=== PATIENT | male | born 1985 ===

== ENCOUNTER 2017-10-03 23:49 | Inpatient (IN) | payer OTHER ==
[2017-10-03 23:49] VITALS: BMI 29.7
--- NOTE | 2017-10-04 00:38 | ED PDOC ---
HPI: SOB/CHF/COPD Chief Complaint (Provider): "Serenity been short of breath for 3 days and its getting worse" History Per: Patient <Jt Griggs - Last Filed: 10/04/17 04:22> <Bridgette Nobles - Last Filed: 10/04/17 20:28> Time Seen by Provider: 10/04/17 00:23 Chief Complaint (Nursing): Shortness Of Breath Additional Complaint(s): 32 y/o male with suspected history of asthma presents for evaluation of SOB. SOB started 3 days ago, which the patients attributes to a combination of cold like symptoms and season allergies. He reports he has been having increased difficulty taking deep breathes, and now his chest feels tight, causing him to come to the ED. He reports a subjective fever the last few days. Last asthma attack was >10 years ago as per pt. He did not take any treatments at home as he does not have any medications or rescue inhalers. He denies chest pain, sputum production, hemoptysis, left arm/jaw pain, N/V/D, diaphoresis, calf pain. Denies drug use. No other complaints. (Jt Griggs) Supervising Attending Note - Supervising Attending Note The Documented history was done by the: Physician Custom Bike Builder, Attending Physician The documented physical exam was done by the: Physician Custom Bike Builder, Attending Physician The documented procedures were done by the: Physician Custom Bike Builder, Attending Physician - Attestation: I have personally seen and examined this patient.: Yes I have fully participated in the care of the patient.: Yes I have reviewed all pertinent clinical information, including history, physical exam and plan: Yes <Bridgette Nobles - Last Filed: 10/04/17 20:28> Past Medical History - Medical History PMH: Asthma Denies: Depression - Family History Family History: States: No Known Family Hx <Jt Griggs - Last Filed: 10/04/17 04:22> Reviewed: Historical Data, Nursing Documentation, Vital Signs - Surgical History Surgical History: No Surg Hx <Bridgette Nobles - Last Filed: 10/04/17 20:28> Vital Signs: Last Vital Signs Temp 98 F 10/04/17 17:00 Pulse 123 H 06/10/18 17:01 Resp 18 10/04/17 17:01 BP 141/85 10/04/17 17:00 Pulse Ox 94 L 10/04/17 17:00 - Home Medications Home Medications: Ambulatory Orders Medication Instructions Recorded No Known Home Med 03/29/15 - Allergies Allergies/Adverse Reactions: Allergies Allergy/AdvReac Type Severity Reaction Status Date / Time No Known Allergies Allergy Verified 10/03/17 23:53 Wells Criteria for PE - Wells Criteria for Pulmonary Embolism Clinical Signs and Symptoms of DVT: No P.E is #1 Diagnosis, or Equally Likely: No Heart Rate >100: Yes Immobilization at least 3 days;Surgery previous 4 weeks: No Previous, objectively diagnosed PE or DVT: No Hemoptysis: No Malignancy w/treatment within 6 months, or palliative: No Total Score: 1.5 <Jt Griggs - Last Filed: 10/04/17 04:22> Review of Systems Constitutional: Positive for: Fever (subjective), Chills. Negative for: Sweats , Weakness, Malaise Eyes: Negative for: Pain, Vision Change ENT: Positive for: Nose Discharge (clear), Nose Congestion. Negative for: Nose Pain, Mouth Pain, Mouth Swelling, Throat Pain Cardiovascular: Negative for: Chest Pain, Palpitations, Paroxysmal Noc. Dyspnea , Edema Respiratory: Positive for: Shortness of Breath, SOB with Exertion, Wheezing. Negative for: Cough, Hemoptysis, Pleuritic Pain, Sputum Gastrointestinal: Negative for: Nausea, Vomiting, Abdominal Pain, Diarrhea Genitourinary Male: Negative for: Dysuria, Frequency, Incontinence Skin: Negative for: Rash Neurological: Negative for: Weakness, Numbness Psych: Negative for: Anxiety, Depression <Jt Griggs - Last Filed: 10/04/17 04:22> ROS Statement: Except As Marked, All Systems Reviewed And Found Negative <Bridgette Nobles - Last Filed: 10/04/17 20:28> Physical Exam - Reviewed Nursing Documentation Reviewed: Yes Vital Signs Reviewed: Yes - Physical Exam Appears: Positive for: Non-toxic, No Acute Distress, Uncomfortable (taking in full sentances but labored) Head Exam: Positive for: ATRAUMATIC, NORMAL INSPECTION, NORMOCEPHALIC Skin: Positive for: Normal Color, Warm, Dry. Negative for: Diaphoresis, Pallor , Rash Eye Exam: Positive for: EOMI, PERRL. Negative for: Conjunctival injection, Scleral icterus ENT: Positive for: Normal ENT Inspection Neck: Positive for: Normal, Painless ROM, Supple Cardiovascular/Chest: Positive for: Regular Rate, Rhythm, Chest Non Tender, Tachycardia. Negative for: JVD, Murmur Respiratory: Positive for: Decreased Breath Sounds, Accessory Muscle Use, Wheezing. Negative for: Normal Breath Sounds, Crackles, Rales, Rhonchi, Respiratory Distress Pulses-Radial (L): 2+ Pulses-Radial (R): 2+ Gastrointestinal/Abdominal: Positive for: Normal Exam, Bowel Sounds, Soft. Negative for: Tenderness Lymphatic: Negative for: Adenopathy Neurologic/Psych: Positive for: Alert, cyber policy and strategy planner II-XII, Oriented. Negative for: Motor/Sensory Deficits <Jt Griggs - Last Filed: 10/04/17 04:22> - Reviewed Nursing Documentation Reviewed: Yes <Bridgette Nobles - Last Filed: 10/04/17 20:28> - Laboratory Results Result Diagrams: 10/04/17 00:46 10/04/17 00:46 - ECG O2 Sat by Pulse Oximetry: 92 - Progress Re-evaluation Time: 04:24 Condition: Improving,but remains with symptoms <Jt Griggs - Last Filed: 10/04/17 04:22> - Laboratory Results Result Diagrams: 10/04/17 00:46 10/04/17 18:50 <Bridgette Nobles - Last Filed: 10/04/17 20:28> - Progress ED Course And Treament: asthma exacerbation cbc cmp uds cxr duo-nebs x 3 solu-medrol 125mg O2 via nc albuterol 2.5mg x1 mag 2gm ivp pt re-evalauted, pre tx flow 100, post tx 130, pt still SOB, wheezing, but with better air entry. POX remains in the low 90s on 2L NC. Discussed case with admitting hospitalist, Dr. Christian, whom agreed with admission. (Jt Griggs) Disposition - Patient ED Disposition Is Patient to be Admitted: Yes - Disposition Disposition Time: 04:25 <Jt Griggs - Last Filed: 10/04/17 04:22> - Patient ED Disposition Is Patient to be Admitted: Yes Discussed With : Yared Christian Doctor Will See Patient In The: ED Counseled Patient/Family Regarding: Studies Performed, Diagnosis - Pt Status Changed To: Hospital Disposition Of: Inpatient - Admit Certification Admit to Inpatient:: After my assessment, the patient will require hospitalization for at least two midnights. This is because of the severity of symptoms shown, intensity of services needed, and/or the medical risk in this patient being treated as an outpatient. - POA Present On Arrival: None <Bridgette Nobles - Last Filed: 10/04/17 20:28> - Clinical Impression Clinical Impression: Acute asthma exacerbation - Disposition Condition: FAIR
[2017-10-04] MEDS: Albuterol-Ipratrop 3 mg / 0.5 (3 ml) UD INH SCH ×2 (00:46→00:48)
[2017-10-04 00:49] LABS: MEAN CELL VOLUME 90.5 fl (80.0-94.0); MEAN CORPUSCULAR HEMOGLOBIN 30.7 pg (27.0-31.0); RBC 5.52 Mil/uL (4.40-5.90); RED CELL DISTRIBUTION WIDTH 13.9 % (11.5-14.5); WHITE BLOOD COUNT 11.5 K/uL (4.8-10.8)
[2017-10-04 00:59] LABS: BLOOD UREA NITROGEN 14 mg/dl (9-20); CALCIUM 9.3 mg/dL (8.4-10.2); GFR AFRICAN-AMERICAN > 60; GFR NON-AFRICAN AMERICAN > 60
[2017-10-04] MEDS ORDERED: Magnesium Sulfate 2 gm/50 ml 2 GM/50 ML BAG IVPB ONE (02:10)
[2017-10-04] MEDS ORDERED: Albuterol 0.083% Inhal Sol (2.5 mg/3 mL) UD INH STA (02:10)
[2017-10-04] MEDS ORDERED: Magnesium Sulfate 2 gm/50 ml 2 GM/50 ML BAG ONE (02:21)
--- NOTE | 2017-10-04 04:45 | CP.PCM.HP ---
History of Present Illness - History of Present Illness History of Present Illness: PMD: None Chief Complaint: SOB The patient was seen and examined in the ED, his family was present HPI: This is a 32 years old male with hx of Asthma, Comes with 3 days of worsening SOB, wheezing, and coughing with green sputum associated with chest tightness. This started as a common cold with subjective fever, throat ached.His last asthmatic crisis was more than 10 years ago. In the ED he received 4 sets of Albuterol and Methyl prednisolone with Magnesium Sulfate. PMH: Asthma PSH: Removal of fluid from both knees SH: Never Smoked, no illegal drug use; Occasional alcohol; FH: Sister with Bronchial asthma Allergies: NKDA Seasonal Allergies Medication: None Present on Admission - Present on Admission Any Indicators Present on Admission: No History of DVT/PE: No History of Uncontrolled Diabetes: No Urinary Catheter: No Decubitus Ulcer Present: No Review of Systems - Constitutional Constitutional: Headache. absent: Anorexia, Chills, Fever, Lethargy, Sleep Apnea - EENT Eyes: absent: Diplopia, Photophobia, Requires Corrective Lenses Ears: absent: Decreased Hearing, Ear Discharge, Tinnitus Nose/Mouth/Throat: absent: Epistaxis, Nasal Congestion, Nasal Discharge, Sinus Pain, Sinus Pressure - Cardiovascular Cardiovascular: Dyspnea. absent: Chest Pain, Edema, Lightheadedness, Palpitations - Respiratory Respiratory: Cough, Wheezing, Chest Congestion. absent: Dyspnea, Stridor - Gastrointestinal Gastrointestinal: absent: Coffee Ground Emesis, Constipation, Diarrhea, Nausea, Vomiting - Genitourinary Genitourinary: absent: Dysuria, Pyuria, Nocturia - Musculoskeletal Musculoskeletal: absent: Arthralgias, Muscle Weakness - Integumentary Integumentary: absent: Pruritus, Rash, Skin Ulcer, Sores, Striae, Swelling - Neurological Neurological: Headaches. absent: Confusion, Focal Weakness, Weakness - Psychiatric Psychiatric: absent: Anxiety, Depression, Hopelessness, Panic Attacks - Endocrine Endocrine: absent: Palpitations, Polydipsia, Polyphagia, Polyuria - Hematologic/Lymphatic Hematologic: absent: Easy Bleeding, Easy Bruising Past Patient History - Past Medical History & Family History Past Medical History?: Yes - Past Social History Smoking Status: Former Smoker Chewing Tobacco Use: No Cigar Use: No Alcohol: Occasional Drugs: Denies, Inhalants Home Situation {Lives}: With Family - CARDIAC Hx Cardiac Disorders: No - PULMONARY Hx Asthma: Yes - NEUROLOGICAL Hx Neurological Disorder: No - HEENT Hx HEENT Problems: No - RENAL Hx Chronic Kidney Disease: No - ENDOCRINE/METABOLIC Hx Endocrine Disorders: No - HEMATOLOGICAL/ONCOLOGICAL Hx Blood Disorders: No - INTEGUMENTARY Hx Dermatological Problems: No - MUSCULOSKELETAL/RHEUMATOLOGICAL Hx Musculoskeletal Disorders: No - GASTROINTESTINAL Hx Gastrointestinal Disorders: No - PSYCHIATRIC Hx Depression: No - SURGICAL HISTORY Hx Surgeries: Yes (b/l knee surgery) Other/Comment: bilateral knee surgery - ANESTHESIA Hx Anesthesia: Yes Hx Anesthesia Reactions: No Meds Allergies/Adverse Reactions: Allergies Allergy/AdvReac Type Severity Reaction Status Date / Time No Known Allergies Allergy Verified 10/03/17 23:53 Physical Exam - Constitutional Appears: In Acute Distress - Head Exam Head Exam: ATRAUMATIC, NORMAL INSPECTION, NORMOCEPHALIC - Eye Exam Eye Exam: EOMI, Normal appearance Pupil Exam: NORMAL ACCOMODATION, PERRL - ENT Exam ENT Exam: Mucous Membranes Moist, Normal Exam - Neck Exam Neck exam: Positive for: Full Rom, Normal Inspection. Negative for: Lymphadenopathy, Tenderness - Respiratory Exam Respiratory Exam: Wheezes - Cardiovascular Exam Cardiovascular Exam: REGULAR RHYTHM, RRR, +S1, +S2 - GI/Abdominal Exam GI & Abdominal Exam: Normal Bowel Sounds, Soft. absent: Mass, Organomegaly, Tenderness - Rectal Exam Rectal Exam: Deferred - Extremities Exam Extremities exam: Positive for: normal inspection. Negative for: calf tenderness, pedal edema - Back Exam Back exam: NORMAL INSPECTION. absent: CVA tenderness (L), CVA tenderness (R) - Neurological Exam Neurological exam: Alert, CN II-XII Intact, Oriented x3, Reflexes Normal - Psychiatric Exam Psychiatric exam: Normal Affect, Normal Mood - Skin Skin Exam: Dry, Intact, Normal Color, Warm Results - Vital Signs Recent Vital Signs: Last Vital Signs Temp 98.8 F 10/04/17 04:00 Pulse 118 H 10/04/17 04:00 Resp 25 H 10/04/17 04:00 BP 149/91 H 10/04/17 04:00 Pulse Ox 92 L 10/04/17 04:25 - Labs Result Diagrams: 10/04/17 00:46 10/04/17 00:46 Labs: Laboratory Results - last 24 hr 10/04/17 10/04/17 00:46 00:46 WBC 11.5 H RBC 5.52 Hgb 17.0 Hct 50.0 MCV 90.5 MCH 30.7 MCHC 34.0 RDW 13.9 Plt Count 334 Sodium 143 Potassium 3.9 Chloride 104 Carbon Dioxide 24 Anion Gap 19 BUN 14 Creatinine 0.9 Est GFR ( Amer) > 60 Est GFR (Non-Af Amer) > 60 Random Glucose 118 H Calcium 9.3 - Imaging and Cardiology Chest x-ray Status: Image reviewed by me Additional comment: increased bronchovascular markings Assessment & Plan - Assessment and Plan (Free Text) Assessment: #. Asthmatic Crisis Plan: 32 years old male with hx of Asthma, Comes with 3 days of worsening SOB , wheezing, and coughing with green sputum associated with chest tightness. This started as a common cold with subjective fever, throat ached. His last asthmatic crisis was more than 10 years ago. In the ED he received 4 sets of Albuterol and Methyl prednisolone with Magnesium Sulfate. #.Asthmatic Crisis - Albuterol nebulizer Q4h and Q2h PRN - Methylprednisone 40mg Q6h - Mucinex Q12H - Oxygen 3L/min - IV Fluids #. DVT prophylaxis with Lovenox #. Code Status: Full - Date & Time Date: 10/04/17 Time: 04:45
[2017-10-04 04:59] LABS: ABG ALLEN TEST YES; ARTERIAL BLOOD GAS HCO3 23.1 mmol/L (21-28); ARTERIAL BLOOD GAS HEMOGLOBIN 17.8 g/dL (11.7-17.4); ARTERIAL BLOOD GAS O2 CAPACITY 23.7 mL/dL (16-24); ARTERIAL BLOOD GAS PCO2 37 mm/Hg (35-45); ARTERIAL BLOOD GAS PH 7.39 (7.35-7.45); ARTERIAL BLOOD GAS PO2 66 mm/Hg (80-100); ARTERIAL BLOOD GAS TCO2 23.5 mmol/L (22-28)
[2017-10-04] MEDS ORDERED: Albuterol 0.083% Inhal Sol (2.5 mg/3 mL) UD INH ONE (04:59)
[2017-10-04] MEDS ORDERED: Albuterol 0.083% Inhal Sol (2.5 mg/3 mL) UD ONE ×2 (05:05→05:11)
[2017-10-04 05:09] LABS: BARBITURATES, UR NEGATIVE (NEGATIVE); BENZODIAZEPINES, UR NEGATIVE (NEGATIVE); OPIATES, UR NEGATIVE (NEGATIVE); PHENCYCLIDINE, UR NEGATIVE (NEGATIVE)
[2017-10-04] MEDS: Dextrose 5%/0.45% NS 1,000 ML IV SCH ×2 (08:07→17:29)
[2017-10-04] MEDS: Albuterol 0.083% Inhal Sol (2.5 mg/3 mL) UD INH SCH ×3 (08:23→16:43)
[2017-10-04] MEDS: guaiFENesin 600 mg ER Tab PO SCH ×2 (08:24→22:05)
[2017-10-04] MEDS: Enoxaparin 40 mg Syringe SC SCH (08:25)
[2017-10-04] MEDS: Albuterol 0.083% Inhal Sol (2.5 mg/3 mL) UD INH PRN (08:29)
--- NOTE | 2017-10-04 09:08 | RAD ---
PROCEDURE: CHEST RADIOGRAPH, 1 VIEW HISTORY: SOB COMPARISON: None available. FINDINGS: LUNGS: Clear. PLEURA: No pneumothorax or pleural fluid seen. CARDIOVASCULAR: Normal. OSSEOUS STRUCTURES: No significant abnormalities. VISUALIZED UPPER ABDOMEN: Normal. OTHER FINDINGS: None. IMPRESSION: No active disease.
[2017-10-04] MEDS: MethylPREDNISolone 40 mg Vial IVP SCH ×3 (09:46→21:23)
[2017-10-04] MEDS ORDERED: methylPREDNISolone 40 MG in Sodium Chloride 0.9% 50 ML IVPB SCH (10:00)
[2017-10-04] MEDS ORDERED: Iohexol 300 100 ML IJ ONE (12:55)
[2017-10-04] MEDS ORDERED: Sodium Chloride 0.9% 50 ML IV ONE (12:55)
--- NOTE | 2017-10-04 13:53 | CT ---
PROCEDURE: CT Chest with contrast (Pulmonary Angiogram) HISTORY: r/o PE COMPARISON: None available. TECHNIQUE: Axial computed tomography images were obtained of the chest in the pulmonary arterial phase of enhancement. Coronal and sagittal reformatted images were created and reviewed. Intravenous contrast dose: 90 mL Omnipaque 300 Radiation dose: Total exam DLP = 378.7 mGy-cm. This CT exam was performed using one or more of the following dose reduction techniques: Automated exposure control, adjustment of the mA and/or kV according to patient size, and/or use of iterative reconstruction technique. FINDINGS: PULMONARY ARTERIES: Suboptimal opacification. No gross central pulmonary embolism. AORTA: No acute findings. No thoracic aortic aneurysm. LUNGS: Unremarkable. No nodule, mass or pulmonary consolidation. PLEURAL SPACES: Unremarkable. No effusion or pneuomothorax. HEART: Unremarkable. No cardiomegaly. No significant pericardial effusion. LYMPH NODES: No lymphadenopathy. BONES, CHEST WALL: Unremarkable. No fracture or destructive lesion OTHER FINDINGS: Unremarkable. IMPRESSION: Suboptimal opacification of the pulmonary arteries. No gross central pulmonary embolism. Clear lungs.
[2017-10-04] MEDS ORDERED: levoFLOXacin 500 mg in D5W 500 MG/100 ML BAG IVPB ONE ×2 (16:32→16:33)
[2017-10-04] MEDS: levoFLOXacin 500 mg in D5W 500 MG/100 ML BAG IVPB SCH (16:42)
[2017-10-04] MEDS ORDERED: Pneumococcal 23-Valent Vaccine IM ONE (17:05)
[2017-10-04 18:56] LABS: T4 7.57 ug/dl (5.5-11.0)
[2017-10-04 19:10] LABS: T3 1.48 nmol/L (1.49-2.60)
[2017-10-04] MEDS: Levalbuterol 1.25 MG/3 ML Inhal Soln UD INH SCH (22:14)
[2017-10-05] MEDS: Levalbuterol 1.25 MG/3 ML Inhal Soln UD INH SCH ×4 (01:07→19:27)
[2017-10-05] MEDS: MethylPREDNISolone 40 mg Vial IVP SCH ×4 (03:09→21:39)
[2017-10-05] MEDS: Dextrose 5%/0.45% NS 1,000 ML IV SCH (03:10)
[2017-10-05] MEDS: levoFLOXacin 500 mg in D5W 500 MG/100 ML BAG IVPB SCH (08:58)
[2017-10-05] MEDS: Enoxaparin 40 mg Syringe SC SCH (09:01)
[2017-10-05] MEDS: guaiFENesin 600 mg ER Tab PO SCH ×2 (09:01→21:41)
--- NOTE | 2017-10-05 12:13 | CP.PCM.PN ---
Subjective - Date & Time of Evaluation Date of Evaluation: 10/05/17 Time of Evaluation: 11:00 - Subjective Subjective: Pt is still short of breath -however sl better than yesterday still tachycardic but also sl better + cough + wheezing dyspnea on exertion No fever denies chest pain Hx of recent travel to his home country in [place] family today noted some black molds in pt's apartment Objective - Vital Signs/Intake and Output Vital Signs (last 24 hours): Temp Pulse Resp BP Pulse Ox 98.1 F 93 H 18 117/73 96 10/05/17 08:00 10/05/17 08:00 10/05/17 08:00 10/05/17 08:00 10/05/17 08:00 - Medications Medications: Current Medications Acetaminophen (Tylenol 325mg Tab) 650 mg PO Q4 PRN PRN Reason: Headache Last Admin: 10/04/17 21:22 Dose: 650 mg Albuterol Sulfate (Albuterol 0.083% Inhal Yadira (2.5 Mg/3 Ml) Ud) 2.5 mg INH RQ2 PRN PRN Reason: Shortness of Breath Last Admin: 10/04/17 08:29 Dose: 2.5 mg Enoxaparin Sodium (Lovenox) 40 mg SC DAILY ELOINA PRN Reason: Protocol Last Admin: 10/05/17 09:01 Dose: 40 mg Guaifenesin (Mucinex La) 600 mg PO Q12 ELOINA Last Admin: 10/05/17 09:01 Dose: 600 mg Levofloxacin/Dextrose (Levaquin 500mg) 500 mg in 100 mls @ 100 mls/hr IVPB DAILY ELOINA PRN Reason: Protocol Last Admin: 10/05/17 08:58 Dose: 100 mls/hr Levalbuterol HCl (Xopenex) 1.25 mg INH RQ6 ELOINA Last Admin: 10/05/17 08:20 Dose: 1.25 mg Methylprednisolone (Solu-Medrol) 40 mg IVP Q6 ELOINA Last Admin: 10/05/17 09:02 Dose: 40 mg - Labs Labs: 10/04/17 00:46 10/04/17 18:50 - Constitutional Appears: Non-toxic, Other (in mild respiratory distress after he walked after a few steps) - Head Exam Head Exam: ATRAUMATIC, NORMAL INSPECTION, NORMOCEPHALIC - Eye Exam Eye Exam: EOMI, Normal appearance, PERRL Pupil Exam: NORMAL ACCOMODATION - ENT Exam ENT Exam: Mucous Membranes Moist, Normal External Ear Exam - Neck Exam Neck Exam: Full ROM. absent: Meningismus - Respiratory Exam Respiratory Exam: Accessory Muscle Use, Decreased Breath Sounds, Rhonchi, Wheezes, Respiratory Distress - Cardiovascular Exam Cardiovascular Exam: Tachycardia, REGULAR RHYTHM, +S1, +S2 - GI/Abdominal Exam GI & Abdominal Exam: Soft, Normal Bowel Sounds. absent: Tenderness - Extremities Exam Extremities Exam: Full ROM, Normal Capillary Refill. absent: Calf Tenderness, Pedal Edema - Back Exam Back Exam: absent: CVA tenderness (L), CVA tenderness (R), vertebral tenderness - Neurological Exam Neurological Exam: Alert, Awake, CN II-XII Intact, Normal Gait, Oriented x3. absent: Motor Sensory Deficit Neuro motor strength exam: Left Upper Extremity: 5, Right Upper Extremity: 5, Left Lower Extremity: 5, Right Lower Extremity: 5 - Psychiatric Exam Psychiatric exam: Normal Affect, Normal Mood - Skin Skin Exam: Dry, Normal Color, Warm Assessment and Plan (1) Acute asthma exacerbation Status: Acute (2) Acute respiratory insufficiency Status: Acute (3) Sinus tachycardia Status: Acute (4) DVT prophylaxis Status: Acute - Assessment and Plan (Free Text) Assessment: 32 years old male with hx of Asthma, comes with 3 days of worsening SOB , wheezing, and coughing with green sputum associated with chest tightness. His last asthmatic crisis was more than 10 years ago. In the ED he received 4 sets of Albuterol and Methyl prednisolone with Magnesium Sulfate. Hx of recent travel 1 wk ago from [place]. (1) Acute asthma exacerbation Hx of Mild Intermittent Asthma Status: Acute Pt has cough, wheezing, dyspnea, and has slight sorethroat cont IV Solumedrol changed Albuterol to Xopenex bec of tachycardia empirically start IV antibiotics CXR : no infiltrates empirically started IV Levaquin (2) Acute respiratory insufficiency with Hypoxia Status: Acute CTA Pulm done due to hypoxia and tachycardia and hx of recent travel CTA Pulm: Suboptimal however no central or large PE, no infiltrates Doppler US of LE : neg Pulmonary consult - DR Jara Family states some molds were seen in pt's apartment (3) Sinus tachycardia ? sec to Bronchodilators Status: Acute ECHOcardiogram to eval cardiac status (4) DVT prophylaxis Status: Acute Lovenox
--- NOTE | 2017-10-05 12:29 | US ---
PROCEDURE: Bilateral lower extremity venous duplex Doppler. HISTORY: recent travel SOB, Tachycardia COMPARISON: None available. TECHNIQUE: Bilateral common femoral, superficial femoral, popliteal and posterior tibial veins were evaluated. Flow was assessed with color Doppler, compressibility, assessment of phasic flow and augmentation response. FINDINGS: COMMON FEMORAL VEIN: Right CFV: Unremarkable. Left CFV: Unremarkable. SUPERFICIAL FEMORAL VEIN: Right SFV: Unremarkable. Left SFV: Unremarkable. POPLITEAL VEIN: Right Popliteal: Unremarkable. Left Popliteal: Unremarkable. POSTERIOR TIBIAL VEIN: Right PTV: Unremarkable. Left PTV: Unremarkable. OTHER FINDINGS: None. IMPRESSION: No evidence of deep venous thrombosis.
[2017-10-05] MEDS: Albuterol 0.083% Inhal Sol (2.5 mg/3 mL) UD INH PRN (18:23)
[2017-10-06] MEDS: Levalbuterol 1.25 MG/3 ML Inhal Soln UD INH SCH ×4 (01:06→19:20)
[2017-10-06] MEDS: guaiFENesin 200 mg/10 ml Syrup UD PO PRN ×3 (03:13→17:02)
[2017-10-06] MEDS: MethylPREDNISolone 40 mg Vial IVP SCH ×3 (03:13→22:35)
[2017-10-06 05:35] LABS: BASO % 0.2 % (0.0-2.0); HEMOGLOBIN 15.6 g/dL (12.0-18.0); LYMPH # 1.4 K/uL (1.0-4.3); LYMPH % 6.3 % (20.0-40.0); MEAN PLATELET VOLUME 8.7 fl (7.2-11.7); MONO # 0.8 K/uL (0.0-0.8); MONO % 3.6 % (0.0-10.0); NEUT # 20.4 K/uL (1.8-7.0); NEUT % 89.9 % (50.0-75.0); PLATELET COUNT 338 K/uL (130-400); RBC 5.05 Mil/uL (4.40-5.90); RED CELL DISTRIBUTION WIDTH 13.9 % (11.5-14.5); WHITE BLOOD COUNT 22.7 K/uL (4.8-10.8)
[2017-10-06 05:51] LABS: BLOOD UREA NITROGEN 17 mg/dl (9-20); CALCIUM 9.4 mg/dL (8.4-10.2); GFR AFRICAN-AMERICAN > 60; GFR NON-AFRICAN AMERICAN > 60
[2017-10-06 07:16] LABS: ANISOCYTOSIS SLIGHT; BANDS 3 % (0-2); LYMPHOCYTE 8 % (20-50); MONOCYTE 1 % (0-10); NEUTROPHIL 87 % (42-75); PLATELET ESTIMATE NORMAL (NORMAL); REACTIVE LYMPHOCYTES 1 % (0-0); TOTAL CELLS COUNTED 100
[2017-10-06 07:17] LABS: LARGE PLATELETS PRESENT
[2017-10-06] MEDS: Enoxaparin 40 mg Syringe SC SCH (08:07)
[2017-10-06] MEDS: guaiFENesin 600 mg ER Tab PO SCH ×2 (08:08→22:35)
[2017-10-06] MEDS: levoFLOXacin 500 mg in D5W 500 MG/100 ML BAG IVPB SCH (08:08)
--- NOTE | 2017-10-06 08:46 | CP.PCM.PN ---
Subjective - Date & Time of Evaluation Date of Evaluation: 10/06/17 Time of Evaluation: 08:20 - Subjective Subjective: Patient seen and examined bedside.Feeling a little better but still with some SOB especially with activity. No acute issues overnight. Minimal cough no sputum production BP 109/72 HR 88 saturating 93-97 % on 2 LO2 via NC Objective - Vital Signs/Intake and Output Vital Signs (last 24 hours): Temp Pulse Resp BP Pulse Ox 97.9 F 88 18 109/72 97 10/06/17 08:00 10/06/17 08:00 10/06/17 08:00 10/06/17 08:00 10/06/17 08:00 - Medications Medications: Current Medications Acetaminophen (Tylenol 325mg Tab) 650 mg PO Q4 PRN PRN Reason: Headache Last Admin: 10/04/17 21:22 Dose: 650 mg Albuterol Sulfate (Albuterol 0.083% Inhal Yadira (2.5 Mg/3 Ml) Ud) 2.5 mg INH RQ2 PRN PRN Reason: Shortness of Breath Last Admin: 10/05/17 18:23 Dose: 2.5 mg Enoxaparin Sodium (Lovenox) 40 mg SC DAILY ELOINA PRN Reason: Protocol Last Admin: 10/06/17 08:07 Dose: 40 mg Guaifenesin (Mucinex La) 600 mg PO Q12 ELOINA Last Admin: 10/06/17 08:08 Dose: 600 mg Guaifenesin (Robitussin) 200 mg PO Q6 PRN PRN Reason: Cough Last Admin: 10/06/17 03:13 Dose: 200 mg Levofloxacin/Dextrose (Levaquin 500mg) 500 mg in 100 mls @ 100 mls/hr IVPB DAILY ELOINA PRN Reason: Protocol Last Admin: 10/06/17 08:08 Dose: 100 mls/hr Levalbuterol HCl (Xopenex) 1.25 mg INH RQ6 ELOINA Last Admin: 10/06/17 07:37 Dose: 1.25 mg Methylprednisolone (Solu-Medrol) 40 mg IVP Q6 ELOINA Last Admin: 10/06/17 03:13 Dose: 40 mg - Labs Labs: 10/06/17 04:20 10/06/17 04:20 - Constitutional Appears: Non-toxic, No Acute Distress - Head Exam Head Exam: ATRAUMATIC, NORMAL INSPECTION, NORMOCEPHALIC - Eye Exam Eye Exam: EOMI, PERRL Pupil Exam: NORMAL ACCOMODATION - ENT Exam ENT Exam: Mucous Membranes Moist, Normal Exam - Neck Exam Neck Exam: Full ROM, Normal Inspection - Respiratory Exam Respiratory Exam: Decreased Breath Sounds (bibasilar with some rales), Rhonchi, Wheezes (scattered ) - Cardiovascular Exam Cardiovascular Exam: REGULAR RHYTHM, +S1, +S2. absent: JVD - GI/Abdominal Exam GI & Abdominal Exam: Soft, Normal Bowel Sounds. absent: Guarding, Rebound - Rectal Exam Rectal Exam: Deferred - Extremities Exam Extremities Exam: Full ROM, Normal Capillary Refill, Normal Inspection. absent : Calf Tenderness, Pedal Edema - Back Exam Back Exam: NORMAL INSPECTION - Neurological Exam Neurological Exam: Alert, Awake, CN II-XII Intact, Oriented x3 - Psychiatric Exam Psychiatric exam: Normal Affect, Normal Mood - Skin Skin Exam: Dry, Intact, Normal Color, Warm Assessment and Plan - Assessment and Plan (Free Text) Assessment: 32 years old male with hx of Asthma, came with 3 days of worsening SOB , wheezing, and coughing with green sputum associated with chest tightness. Patient recently traveled back from [facility]. His last asthmatic crisis was more than 10 years ago. In the ED he received 4 sets of Albuterol and Methyl prednisolone with Magnesium Sulfate but noted to be very tight. CT chest showed no central PE , no infiltrate He was admitted and started on Solumedrol IV Q6 , Duonebs and Levaquine empirically Pulmonary consulted. At present feeling a little better but still with SOB especially with activity and O2Sat 93 % on 2 LO2 via NC 1. Acute asthma exacerbation Hx of Mild Intermittent Asthma Acute with cough, wheezing, dyspnea, chest tigghtness and soutum production O2 sat 93 5 on 2 Lo2 via Nc WBC trending up to 22 k today C T chest showed no PE no infiltrate cont IV Solumedrol but gary to 40 mg IV Q12 changed Albuterol to Xopenex because of tachycardia In Levaquine empirically 2. Acute respiratory insufficiency with Hypoxia secondary tO Asthma exacerbation Acute CTA Pulm done due to hypoxia and tachycardia and hx of recent travel CTA Pulm: Suboptimal however no central or large PE, no infiltrates Doppler US of LE : neg Pulmonary contulted and case discussed with Dr.Jara Cobntinue current management . Gary stroids 3 Sinus tachycardia sec to Bronchodilators Albuterol switched to Xopenex TSH - wnl F/u echo report 4. Leukocytosis Most likely steroid induced gary steroids down Repeat CBc in AM 5.DVT prophylaxis Lovenox
--- NOTE | 2017-10-06 08:52 | CP.PCM.CON ---
History of Present Illness - History of Present Illness History of Present Illness: 32 YR OLD MALE ARMITTED WITH ACUTE ASTHMA.HE WAS SICK WITH URI SYMPTOMS AND WHEEZING WITH SHORTNESS OF BREATH X 3 DAYS BEFORE COMING TO HOSPITAL. HX OF CHILDHOOD ASTHMA BUT HAS NOT BEEN ILL X YRS. 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 AND IS ALLERGIC TO CATS Past Patient History - Past Medical History & Family History Past Medical History?: Yes - Past Social History Smoking Status: Never Smoked - CARDIAC Hx Cardiac Disorders: No - PULMONARY Hx Respiratory Disorders: Yes Hx Asthma: Yes - NEUROLOGICAL Hx Neurological Disorder: No - HEENT Hx HEENT Problems: No - RENAL Hx Chronic Kidney Disease: No - ENDOCRINE/METABOLIC Hx Endocrine Disorders: No - HEMATOLOGICAL/ONCOLOGICAL Hx Blood Disorders: No - INTEGUMENTARY Hx Dermatological Problems: No - MUSCULOSKELETAL/RHEUMATOLOGICAL Hx Falls: No - GASTROINTESTINAL Hx Gastrointestinal Disorders: No - PSYCHIATRIC Hx Substance Use: No - SURGICAL HISTORY Hx Surgeries: Yes (b/l knee surgery) Other/Comment: bilateral knee surgery - ANESTHESIA Hx Anesthesia: Yes Hx Anesthesia Reactions: No Meds Allergies/Adverse Reactions: Allergies Allergy/AdvReac Type Severity Reaction Status Date / Time No Known Allergies Allergy Verified 10/03/17 23:53 - Medications Medications: Current Medications Acetaminophen (Tylenol 325mg Tab) 650 mg PO Q4 PRN PRN Reason: Headache Last Admin: 10/04/17 21:22 Dose: 650 mg Albuterol Sulfate (Albuterol 0.083% Inhal Yadira (2.5 Mg/3 Ml) Ud) 2.5 mg INH RQ2 PRN PRN Reason: Shortness of Breath Last Admin: 10/05/17 18:23 Dose: 2.5 mg Enoxaparin Sodium (Lovenox) 40 mg SC DAILY ELOINA PRN Reason: Protocol Last Admin: 10/06/17 08:07 Dose: 40 mg Guaifenesin (Mucinex La) 600 mg PO Q12 ELOINA Last Admin: 10/06/17 08:08 Dose: 600 mg Guaifenesin (Robitussin) 200 mg PO Q6 PRN PRN Reason: Cough Last Admin: 10/06/17 03:13 Dose: 200 mg Levofloxacin/Dextrose (Levaquin 500mg) 500 mg in 100 mls @ 100 mls/hr IVPB DAILY ELOINA PRN Reason: Protocol Last Admin: 10/06/17 08:08 Dose: 100 mls/hr Methylprednisolone 40 mg/ (Sodium Chloride) 50 mls @ 100 mls/hr IV Q12 ELOINA Levalbuterol HCl (Xopenex) 1.25 mg INH RQ6 ELOINA Last Admin: 10/06/17 07:37 Dose: 1.25 mg Physical Exam - Constitutional Additional comments: MILD EXERTIONAL DYSPNEA - Head Exam Head Exam: ATRAUMATIC, NORMAL INSPECTION, NORMOCEPHALIC - Eye Exam Eye Exam: EOMI, Normal appearance, PERRL Pupil Exam: NORMAL ACCOMODATION, PERRL - ENT Exam ENT Exam: Mucous Membranes Moist, Normal Exam - Neck Exam Neck exam: Positive for: Normal Inspection - Respiratory Exam Respiratory Exam: Prolonged Expiratory Phase, NORMAL BREATHING PATTERN Additional comments: MILD END EXPIRATORY WHEEZING - Cardiovascular Exam Cardiovascular Exam: REGULAR RHYTHM - GI/Abdominal Exam GI & Abdominal Exam: Normal Bowel Sounds, Soft. absent: Tenderness - Rectal Exam Rectal Exam: NORMAL INSPECTION - Extremities Exam Extremities exam: Positive for: normal inspection - Back Exam Back exam: NORMAL INSPECTION - Neurological Exam Neurological exam: Alert, CN II-XII Intact, Normal Gait, Oriented x3, Reflexes Normal - Psychiatric Exam Psychiatric exam: Normal Affect, Normal Mood - Skin Skin Exam: Dry, Intact, Normal Color, Warm Results - Vital Signs Recent Vital Signs: Last Vital Signs Temp 97.9 F 10/06/17 08:00 Pulse 88 10/06/17 08:00 Resp 18 10/06/17 08:00 BP 109/72 10/06/17 08:00 Pulse Ox 97 10/06/17 08:00 - Labs Result Diagrams: 10/06/17 04:20 10/06/17 04:20 Labs: Laboratory Results - last 24 hr 10/06/17 10/06/17 04:20 04:20 WBC 22.7 H D RBC 5.05 Hgb 15.6 Hct 46.0 MCV 91.0 MCH 31.0 MCHC 34.0 RDW 13.9 Plt Count 338 MPV 8.7 Neut % (Auto) 89.9 H Lymph % (Auto) 6.3 L [place] % (Auto) 3.6 Eos % (Auto) 0.0 Baso % (Auto) 0.2 Neut # (Auto) 20.4 H Lymph # (Auto) 1.4 [place] # (Auto) 0.8 Eos # (Auto) 0.0 Baso # (Auto) 0.0 Neutrophils % (Manual) 87 H Band Neutrophils % 3 H Lymphocytes % (Manual) 8 L Reactive Lymphs % 1 H Monocytes % (Manual) 1 Platelet Estimate Normal Large Platelets Present Anisocytosis (manual) Slight Sodium 141 Potassium 4.6 Chloride 102 Carbon Dioxide 26 Anion Gap 18 BUN 17 Creatinine 0.8 Est GFR ( Amer) > 60 Est GFR (Non-Af Amer) > 60 Random Glucose 146 H Calcium 9.4 Assessment & Plan - Assessment and Plan (Free Text) Assessment: ACUTE ASTHMA MUCUS PLUGGING OF AIRWAYS URI LEUKOCYTOSIS PROBABLY DUE TO STEROIDS Plan: TAPER STEROIDS OK TO D/C IN AM IF STABLE
[2017-10-06] MEDS ORDERED: methylPREDNISolone 40 MG in Sodium Chloride 0.9% 50 ML IV SCH (09:00)
--- NOTE | 2017-10-06 10:30 | CARD ---
APPROVED REPORT EXAM: Two-dimensional and M-mode echocardiogram with Doppler and color Doppler. Other Information Quality : GoodRhythm : Tachycardia INDICATION Abnormal EKG/Arrhythmia Tachycardia 2D DIMENSIONS IVSd1.17 (0.7-1.1cm)LVDd3.56 (3.9-5.9cm) LVOT Diameter1.80 (1.8-2.4cm)PWd1.12 (0.7-1.1cm) IVSs1.47 (0.8-1.2cm)LVDs2.21 (2.5-4.0cm) FS (%) 38.0 %PWs1.23 (0.8-1.2cm) M-Mode DIMENSIONS Left Atrium (MM)4.18 (2.5-4.0cm)IVSd1.29 (0.7-1.1cm) Aortic Root3.24 (2.2-3.7cm)LVDd4.41 (4.0-5.6cm) Aortic Cusp Exc.2.21 (1.5-2.0cm)PWd1.15 (0.7-1.1cm) IVSs1.68 cmFS (%) 41 % LVDs2.59 (2.0-3.8cm)PWs1.38 cm Mitral Valve MV E Cudantpg45.4cm/sMV DECEL EXLS768diRS A Kwarmpji87.1cm/s MV OIH34xtB/A ratio1.0MVA (PHT)3.90cm2 TDI Lateral E' Peak V13.28cm/sMedial E' Peak V12.55cm/sE/Lateral E'5.8 E/Medial E'6.2 Pulmonary Valve PV Peak Rgyohjor400.4cm/s LEFT VENTRICLE The left ventricle is normal size. There is normal left ventricular wall thickness. The left ventricular function is normal. The left ventricular ejection fraction is 65-70% There is normal LV segmental wall motion. The left ventricular diastolic function is normal. No left ventricle thrombus noted on this study. There is no ventricular septal defect visualized. There is no left ventricular aneurysm. There is no mass noted in the left ventricle. RIGHT VENTRICLE The right ventricle is normal size. There is normal right ventricular wall thickness. The right ventricular systolic function is normal. ATRIA The left atrium size is normal. The right atrium size is normal. The interatrial septum is intact with no evidence for an atrial septal defect. AORTIC VALVE The aortic valve is normal in structure. No aortic regurgitation is present. There is no aortic valvular stenosis. There is no aortic valvular vegetation. MITRAL VALVE The mitral valve is normal in structure. There is no evidence of mitral valve prolapse. There is no mitral valve stenosis. There is no mitral valve regurgitation noted. TRICUSPID VALVE The tricuspid valve is normal in structure. There is no tricuspid valve regurgitation noted. There is no tricuspid valve prolapse or vegetation. There is no tricuspid valve stenosis. PULMONIC VALVE The pulmonary valve is normal in structure. There is no pulmonic valvular regurgitation. There is no pulmonic valvular stenosis. GREAT VESSELS The aortic root is normal in size. The ascending aorta is normal in size. The IVC is normal in size and collapses >50% with inspiration. PERICARDIAL EFFUSION The pericardium appears normal. There is no pleural effusion. <Conclusion> Normal Echocardiogram
[2017-10-06] MEDS: Albuterol 0.083% Inhal Sol (2.5 mg/3 mL) UD INH PRN (11:10)
[2017-10-06] MEDS ORDERED: Benzocaine/Menthol (Cepacol) Lozenge PO PRN (16:36)
[2017-10-07] MEDS: Levalbuterol 1.25 MG/3 ML Inhal Soln UD INH SCH ×2 (01:18→08:10)
[2017-10-07 05:29] LABS: HEMOGLOBIN 15.8 g/dL (12.0-18.0); MEAN CELL VOLUME 91.1 fl (80.0-94.0); RBC 5.08 Mil/uL (4.40-5.90); RED CELL DISTRIBUTION WIDTH 14.1 % (11.5-14.5); WHITE BLOOD COUNT 19.3 K/uL (4.8-10.8)
[2017-10-07 05:35] LABS: ALB/GLOB RATIO 1.4 (1.0-2.1); ALBUMIN 4.2 g/dL (3.5-5.0); ALT/SGPT 56 U/L (21-72); AST/SGOT 28 U/L (17-59); BLOOD UREA NITROGEN 17 mg/dl (9-20); GFR AFRICAN-AMERICAN > 60; GFR NON-AFRICAN AMERICAN > 60
[2017-10-07 07:51] VITALS: RESP 20
--- NOTE | 2017-10-07 08:28 | CP.PCM.DIS ---
Provider - Provider Date of Admission: 10/06/17 03:52 Attending physician: Yared Christian Primary care physician: None Consults: Pulmonary consult Time Spent in preparation of Discharge (in minutes): 15 Hospital Course - Lab Results Lab Results: Most Recent Lab Values WBC 19.3 K/uL (4.8-10.8) H 10/07/17 04:20 RBC 5.08 Mil/uL (4.40-5.90) 10/07/17 04:20 Hgb 15.8 g/dL (12.0-18.0) 10/07/17 04:20 Hct 46.3 % (35.0-51.0) 10/07/17 04:20 MCV 91.1 fl (80.0-94.0) 10/07/17 04:20 MCH 31.0 pg (27.0-31.0) 10/07/17 04:20 MCHC 34.0 g/dL (33.0-37.0) 10/07/17 04:20 RDW 14.1 % (11.5-14.5) 10/07/17 04:20 Plt Count 331 K/uL (130-400) 10/07/17 04:20 MPV 8.7 fl (7.2-11.7) 10/06/17 04:20 Neut % (Auto) 89.9 % (50.0-75.0) H 10/06/17 04:20 Lymph % (Auto) 6.3 % (20.0-40.0) L 10/06/17 04:20 [place] % (Auto) 3.6 % (0.0-10.0) 10/06/17 04:20 Eos % (Auto) 0.0 % (0.0-4.0) 10/06/17 04:20 Baso % (Auto) 0.2 % (0.0-2.0) 10/06/17 04:20 Neut # (Auto) 20.4 K/uL (1.8-7.0) H 10/06/17 04:20 Lymph # (Auto) 1.4 K/uL (1.0-4.3) 10/06/17 04:20 [place] # (Auto) 0.8 K/uL (0.0-0.8) 10/06/17 04:20 Eos # (Auto) 0.0 K/uL (0.0-0.7) 10/06/17 04:20 Baso # (Auto) 0.0 K/uL (0.0-0.2) 10/06/17 04:20 Neutrophils % (Manual) 87 % (42-75) H 10/06/17 04:20 Band Neutrophils % 3 % (0-2) H 10/06/17 04:20 Lymphocytes % (Manual) 8 % (20-50) L 10/06/17 04:20 Reactive Lymphs % 1 % (0-0) H 10/06/17 04:20 Monocytes % (Manual) 1 % (0-10) 10/06/17 04:20 Platelet Estimate Normal (NORMAL) 10/06/17 04:20 Large Platelets Present 10/06/17 04:20 Anisocytosis (manual) Slight 10/06/17 04:20 pCO2 37 mm/Hg (35-45) 10/04/17 04:45 pO2 66 mm/Hg (80-100) L 10/04/17 04:45 HCO3 23.1 mmol/L (21-28) 10/04/17 04:45 ABG pH 7.39 (7.35-7.45) 10/04/17 04:45 ABG Total CO2 23.5 mmol/L (22-28) 10/04/17 04:45 ABG O2 Saturation 97.0 % (95-98) 10/04/17 04:45 ABG O2 Content 23.0 ML/dL (15-23) 10/04/17 04:45 ABG Base Excess -2.1 mmol/L (-2.0-3.0) L 10/04/17 04:45 ABG Hemoglobin 17.8 g/dL (11.7-17.4) H 10/04/17 04:45 ABG Carboxyhemoglobin 2.4 % (0.5-1.5) H 10/04/17 04:45 POC ABG HHb (Measured) 2.9 % (0.0-5.0) 10/04/17 04:45 ABG Methemoglobin 2.4 % (0.0-3.0) 10/04/17 04:45 ABG O2 Capacity 23.7 mL/dL (16-24) 10/04/17 04:45 Tristan Test Yes 10/04/17 04:45 A-a O2 Difference 116.0 mm/Hg 10/04/17 04:45 Hgb O2 Saturation 92.3 % (95.0-98.0) L 10/04/17 04:45 Vent Mode 3lnc 10/04/17 04:45 FiO2 32.0 % 10/04/17 04:45 Sodium 139 mmol/l (132-148) 10/07/17 04:20 Potassium 4.5 MMOL/L (3.6-5.0) 10/07/17 04:20 Chloride 103 mmol/L (98-107) 10/07/17 04:20 Carbon Dioxide 27 mmol/L (22-30) 10/07/17 04:20 Anion Gap 14 (10-20) 10/07/17 04:20 BUN 17 mg/dl (9-20) 10/07/17 04:20 Creatinine 0.8 mg/dl (0.8-1.5) 10/07/17 04:20 Est GFR ( Amer) > 60 10/07/17 04:20 Est GFR (Non-Af Amer) > 60 10/07/17 04:20 Random Glucose 168 mg/dL (75-110) H 10/07/17 04:20 Calcium 9.0 mg/dL (8.4-10.2) 10/07/17 04:20 Total Bilirubin 0.4 mg/dl (0.2-1.3) 10/07/17 04:20 AST 28 U/L (17-59) 10/07/17 04:20 ALT 56 U/L (21-72) 10/07/17 04:20 Alkaline Phosphatase 77 U/L (38-126) 10/07/17 04:20 Total Protein 7.3 G/DL (6.3-8.2) 10/07/17 04:20 Albumin 4.2 g/dL (3.5-5.0) 10/07/17 04:20 Globulin 3.0 gm/dL (2.2-3.9) 10/07/17 04:20 Albumin/Globulin Ratio 1.4 (1.0-2.1) 10/07/17 04:20 Procalcitonin < 0.05 NG/ML (0.19-0.49) L 10/06/17 04:20 Thyroxine (T4) 7.57 ug/dl (5.5-11.0) 10/04/17 18:50 Total T3 1.48 nmol/L (1.49-2.60) L 10/04/17 18:50 TSH 3rd Generation 2.96 mIU/ML (0.46-4.68) 10/04/17 18:50 Urine Opiates Screen Negative (NEGATIVE) 10/04/17 04:30 Urine Methadone Screen Negative (NEGATIVE) 10/04/17 04:30 Ur Barbiturates Screen Negative (NEGATIVE) 10/04/17 04:30 Ur Phencyclidine Scrn Negative (NEGATIVE) 10/04/17 04:30 Ur Amphetamines Screen Negative (NEGATIVE) 10/04/17 04:30 U Benzodiazepines Scrn Negative (NEGATIVE) 10/04/17 04:30 U Oth Cocaine Metabols Negative (NEGATIVE) 10/04/17 04:30 U Cannabinoids Screen Negative (NEGATIVE) 10/04/17 04:30 - Hospital Course Hospital Course: 32 years old male with hx of Asthma, came with 3 days of worsening SOB , wheezing, and coughing with green sputum associated with chest tightness. Patient recently traveled back from [facility]. His last asthmatic crisis was more than 10 years ago. In the ED he received 4 sets of Albuterol and Methyl prednisolone with Magnesium Sulfate but noted to be very tight. CT chest showed no central PE , no infiltrate He was admitted and started on Solumedrol IV Q6 , Duonebs and Levaquine empirically. Duonebs were switched to Xopenex due to tachycardia. Pulmonary consulted. Clinically showed improvement,so steroids were tapered down. Today feeling much better , saturating 100 % , with no respiratory distress or wheezing. Still with some dry cough. Will discharge patient home on tapering dose of PO prednisone , Levaquine PO, Albuterol rescue inhaler and singulair. Follow upw ith CFH or PMD. Avoid irritants such as cats or dogs. 1. Acute asthma exacerbation Hx of Mild Intermittent Asthma Acute with cough, wheezing, dyspnea, chest tightness and sputum production on admission treated with IV solumedrol and tapered down . Discharged on PO prednisone Ct chest showed no PE , no infiltrtaes Levaquine empirically 2. Acute respiratory insufficiency with Hypoxia secondary tO Asthma exacerbation Acute CTA Pulm done due to hypoxia and tachycardia and hx of recent travel CTA Pulm: Suboptimal however no central or large PE, no infiltrates Doppler US of LE : neg Pulmonary consulted and case discussed with Treated with Solumedrol IV, Xopenex Will d/c on Singulair, Albuterol rescue inhaler and prednisone tapering dose 3 Sinus tachycardia sec to Bronchodilators Albuterol switched to Xopenex TSH - wnl Echo - normal 4. Leukocytosis Most likely steroid induced ., trending down patient afebrile tappered steroids and discharged on Prednisone Po tapering dose 5.DVT prophylaxis Lovenox Discharge Exam - Head Exam Head Exam: ATRAUMATIC, NORMAL INSPECTION, NORMOCEPHALIC - Eye Exam Eye Exam: EOMI, Normal appearance, PERRL Pupil Exam: NORMAL ACCOMODATION - ENT Exam ENT Exam: Mucous Membranes Moist, Normal Exam - Neck Exam Neck exam: Full Rom, Normal Inspection - Respiratory Exam Respiratory Exam: Clear to PA & Lateral, NORMAL BREATHING PATTERN. absent: Rales, Rhonchi, Wheezes - Cardiovascular Exam Cardiovascular Exam: REGULAR RHYTHM, RRR, +S1, +S2. absent: JVD - GI/Abdominal Exam GI & Abdominal Exam: Normal Bowel Sounds, Soft. absent: Distended, Guarding, Rebound, Tenderness - Rectal Exam Rectal Exam: Deferred - Extremities Exam Extremities exam: normal capillary refill, normal inspection, pedal pulses present - Back Exam Back exam: NORMAL INSPECTION - Neurological Exam Neurological exam: Alert, CN II-XII Intact, Oriented x3 - Psychiatric Exam Psychiatric exam: Normal Affect, Normal Mood - Skin Skin Exam: Dry, Intact, Normal Color, Warm Discharge Plan - Discharge Medications Prescriptions: Albuterol HFA [Ventolin HFA 90 mcg/actuation (8 g)] 1 puff IH Q6 PRN #1 puff PRN Reason: Wheezing Benzocaine/Menthol [Cepacol Sore Throat] 1 my PO Q2 PRN #20 my PRN Reason: Sore Throat guaiFENesin [Mucinex LA] 600 mg PO Q12 #20 tab guaiFENesin/Codeine [Robitussin w/Codeine] 5 ml PO Q4H #120 ml levoFLOXacin [Levaquin] 500 mg PO DAILY #5 tab Montelukast [Singulair] 10 mg PO DAILY #30 tab Prednisone 5 mg PO DAILY #20 tab.ds.pk - Follow Up Plan Condition: STABLE Disposition: HOME/ ROUTINE Patient education suggested?: Yes Instructions: Asthma, Adult (DC) Additional Instructions: follow up with pmd in 1 week Referrals: [facility] [Outside] Tito Vieyra MD [Staff Provider] -
[2017-10-07] MEDS: levoFLOXacin 500 mg in D5W 500 MG/100 ML BAG IVPB SCH (08:35)
[2017-10-07] MEDS: Enoxaparin 40 mg Syringe SC SCH (08:36)
[2017-10-07] MEDS: guaiFENesin 600 mg ER Tab PO SCH (08:36)
[2017-10-07] MEDS: MethylPREDNISolone 40 mg Vial IVP SCH (08:37)
[2017-10-07 09:44] VITALS: PULSE 82
[2017-10-07 12:21] VITALS: BP 144/80; TEMP 98.2; O2SAT 96
== END 2017-10-07 13:24 | disposition home or self-care (01) | DRG 96 ==
LOC: H.ER 23:49 → H.ERHOLD 10-04 03:56 → H.TEL 10-04 16:36 → OBSVTOIN 10-06 03:52
PROVIDERS: ADMIT Internal Medicine; ATTEND Internal Medicine
PROC: 3E0F73Z Introduction of Anti-inflammatory into Respiratory Tract, Via Natural or Artificial Opening (ICD-10-PCS; principal; 2017-10-05)
PROC: 3E0234Z Introduction of Serum, Toxoid and Vaccine into Muscle, Percutaneous Approach (ICD-10-PCS; 2017-10-05)
DX: J45.21 Mild intermittent asthma with (acute) exacerbation (principal); R09.02 Hypoxemia; J06.9 Acute upper respiratory infection, unspecified; D72.828 Other elevated white blood cell count; R00.0 Tachycardia, unspecified; T48.6X5A Adverse effect of antiasthmatics, initial encounter; Z23 Encounter for immunization; Z87.891 Personal history of nicotine dependence; Y92.239 Unspecified place in hospital as the place of occurrence of the external cause

== ENCOUNTER 2017-10-13 18:08 | Emergency (ER) | payer OTHER ==
[2017-10-13 18:08] VITALS: BMI 29.7
[2017-10-13 18:23] VITALS: BP 122/81; PULSE 86; RESP 16; TEMP 97.8; O2SAT 100
--- NOTE | 2017-10-13 19:35 | ED PDOC ---
Lower Extremity Pain/Injury Time Seen by Provider: 10/13/17 18:37 Chief Complaint (Nursing): Lower Extremity Problem/Injury History Per: Patient History/Exam Limitations: no limitations Onset/Duration Of Symptoms: Days (x yesterday) Current Symptoms Are (Timing): Still Present Additional Complaint(s): 32-year-old male presents to ED for evaluation of right knee pain. Pt states he was playing soccer yesterday where he planted his right leg and twisted right knee accidentally. Denies blunt trauma, numbness, tingling. PMD: No Family Provider Past Medical History Reviewed: Historical Data, Nursing Documentation, Vital Signs Vital Signs: Last Vital Signs Temp 97.8 F 10/13/17 18:20 Pulse 86 10/13/17 18:20 Resp 16 10/13/17 18:20 BP 122/81 10/13/17 18:20 Pulse Ox 100 10/13/17 18:20 - Medical History PMH: Asthma Denies: Depression, Chronic Kidney Disease - Surgical History Surgical History: No Surg Hx - Family History Family History: States: Unknown Family Hx - Social History Current smoker - smoking cessation education provided: No Alcohol: None Drugs: Denies - Home Medications Home Medications: Ambulatory Orders Medication Instructions Recorded Albuterol HFA [Ventolin HFA 90 1 puff IH Q6 PRN #1 puff 10/07/17 mcg/actuation (8 g)] Benzocaine/Menthol [Cepacol Sore 1 my PO Q2 PRN #20 my 10/07/17 Throat] Montelukast [Singulair] 10 mg PO DAILY #30 tab 10/07/17 Prednisone 5 mg PO DAILY #20 tab.ds.pk 10/07/17 guaiFENesin [Mucinex LA] 600 mg PO Q12 #20 tab 10/07/17 guaiFENesin/Codeine [Robitussin 5 ml PO Q4H #120 ml 10/07/17 w/Codeine] levoFLOXacin [Levaquin] 500 mg PO DAILY #5 tab 10/07/17 - Allergies Allergies/Adverse Reactions: Allergies Allergy/AdvReac Type Severity Reaction Status Date / Time No Known Allergies Allergy Verified 10/13/17 18:20 Review of Systems ROS Statement: Except As Marked, All Systems Reviewed And Found Negative Musculoskeletal: Positive for: Other (right knee pain) Neurological: Negative for: Numbness, Other (tingling) Physical Exam - Reviewed Nursing Documentation Reviewed: Yes Vital Signs Reviewed: Yes - Physical Exam Pulses-Dorsalis Pedis (R): 2+ Extremity: Positive for: Other (Right Knee: (+) Mild Tenderness, (-) Swelling, ( -) Defomity, (-) varus, (-) valgus, (-) anterior draw signs) - ECG O2 Sat by Pulse Oximetry: 100 (RA) Pulse Ox Interpretation: Normal - Radiology X-Ray: Interpreted by Me (Knee x-ray) - Progress ED Course And Treament: Knee immobilized in immobilizer applied by mobile sales technician. Crutches and crutch walking instructions provided. Medical Decision Making Medical Decision Making: Plan: - Right Knee X-Ray - Motrin Tab 600 MG PO Time: 20:24 Discussed results with patient Upon provider evaluation patient is medically stable, and requires no further treatment in the ED at this time. Patient will be discharged. Counseling was provided and all questions were answered regarding diagnosis and need for follow up with orthopedist for further evaluation. There is agreement to discharge plan. Return if symptoms persist or worsen. Scribe Attestation: Documented by Davin Escobar, acting as a scribe for Mike Bates PA-C Provider Scribe Attestation: All medical record entries made by the Scribe were at my direction and personally dictated by me. I have reviewed the chart and agree that the record accurately reflects my personal performance of the history, physical exam, medical decision making, and the department course for this patient. I have also personally directed, reviewed, and agree with the discharge instructions and disposition. Disposition - Clinical Impression Clinical Impression: Knee injury - Patient ED Disposition Is Patient to be Admitted: No - Disposition Referrals: [facility] [Outside] Marina Canela MD [Staff Provider] - Disposition: Routine/Home Disposition Time: 20:21 Condition: STABLE Additional Instructions: Follow up with orthopedist for further evaluation. Return to ED immediately if symptoms worsen. Instructions: How to Use Crutches, Knee Sprain (DC) Forms: [facility] (Slovenian), [facility] ED School/Work Excuse
--- NOTE | 2017-10-14 10:28 | RAD ---
PROCEDURE: Right Knee Radiographs. HISTORY: trauma COMPARISON: None. FINDINGS: BONES: No acute fracture. JOINTS: Unremarkable. JOINT EFFUSION: Small suprapatellar joint effusion. OTHER FINDINGS: None. IMPRESSION: Small suprapatellar joint effusion without demonstrated fracture or dislocation.
== END 2017-10-13 22:02 | disposition home or self-care (01) ==
LOC: H.ER 18:08
DX: S89.91XA Unspecified injury of right lower leg, initial encounter (principal); X50.9XXA Other and unspecified overexertion or strenuous movements or postures, initial encounter; Y92.322 Soccer field as the place of occurrence of the external cause

== ENCOUNTER 2018-09-02 20:38 | Emergency (ER) | payer OTHER ==
[2018-09-02 20:38] VITALS: BMI 29.7
[2018-09-02] MEDS ORDERED: Albuterol-Ipratrop 3 mg / 0.5 (3 ml) UD INH STA ×4 (21:29→23:23)
[2018-09-02] MEDS ORDERED: Albuterol-Ipratrop 3 mg / 0.5 (3 ml) UD ONE (21:53)
--- NOTE | 2018-09-02 21:54 | ED PDOC ---
HPI: SOB/CHF/COPD Time Seen by Provider: 09/02/18 21:22 Chief Complaint (Nursing): Cough, Cold, Congestion Chief Complaint (Provider): Shortness of breath, wheezing History Per: Patient History/Exam Limitations: no limitations Onset/Duration Of Symptoms: Days Current Symptoms Are (Timing): Still Present Initiating Event: Other (seasonal allergies) Additional History Per: Patient Additional Complaint(s): 33yo male, with history of asthma but no prior intubation, comes to ER for evaluation of shortness of breath and wheezing, which has been ongoing x 2 weeks. Patient states his symptoms are worse due to seasonal allergies; patient has been taking Benadryl, Zyrtec and Julia with no significant relief of symptoms. He additionally reports he lost his albuterol inhaler. Patient has intermittent chills, sweats and reports subjective fevers. No complaints of chest pain, weakness, or other complaints. Past Medical History Reviewed: Historical Data, Nursing Documentation, Vital Signs Vital Signs: Last Vital Signs Temp 99.7 F H 09/02/18 21:08 Pulse 99 H 09/02/18 21:08 Resp 18 09/02/18 21:08 BP 149/91 H 09/02/18 21:08 Pulse Ox 94 L 09/02/18 21:08 Primary Care Provider: FAMILY PROVIDER,NO - Medical History PMH: Asthma Denies: Depression, Chronic Kidney Disease - Surgical History Surgical History: No Surg Hx - Family History Family History: States: Unknown Family Hx - Home Medications Home Medications: Ambulatory Orders Medication Instructions Recorded Albuterol HFA [Ventolin HFA 90 1 puff IH Q6 PRN #1 puff 10/07/17 mcg/actuation (8 g)] Montelukast [Singulair] 10 mg PO DAILY #30 tab 10/07/17 Ibuprofen [Motrin] 600 mg PO TID #30 tab 10/15/17 Albuterol HFA [Ventolin HFA 90 2 puff IH [id number] #1 puff 09/02/18 mcg/actuation (8 g)] Ketotifen Fumarate [Allergy Eye 10 ml OP BID #1 bottle 09/02/18 Drops] Loratadine 10 mg PO DAILY #30 tablet 09/02/18 Prednisone [Deltasone] 40 mg PO DAILY 3 Days #6 tablet 09/02/18 - Allergies Allergies/Adverse Reactions: Allergies Allergy/AdvReac Type Severity Reaction Status Date / Time pollen extracts Allergy COUGH Verified 09/02/18 21:13 Review of Systems ROS Statement: Except As Marked, All Systems Reviewed And Found Negative Constitutional: Positive for: Fever (subjective), Chills, Sweats Cardiovascular: Negative for: Chest Pain Respiratory: Positive for: Shortness of Breath, Wheezing Physical Exam - Reviewed Nursing Documentation Reviewed: Yes Vital Signs Reviewed: Yes - Physical Exam Appears: Positive for: Non-toxic, Uncomfortable Head Exam: Positive for: ATRAUMATIC, NORMAL INSPECTION, NORMOCEPHALIC Skin: Positive for: Normal Color Eye Exam: Positive for: EOMI, PERRL, Conjunctival injection Neck: Positive for: Supple Cardiovascular/Chest: Positive for: Regular Rate, Rhythm Respiratory: Positive for: Decreased Breath Sounds (decreased air entry), Wheezing (bilateral expiratory wheeze with prolonged expiratory phase), Other (speaking full sentences; no tachypnea). Negative for: Respiratory Distress Gastrointestinal/Abdominal: Positive for: Normal Exam, Soft Back: Positive for: Normal Inspection Extremity: Positive for: Normal ROM Neurological/Psych: Positive for: Awake, Alert, Normal Tone, Oriented (x 3). Negative for: Motor/Sensory Deficits - ECG O2 Sat by Pulse Oximetry: 94 (RA) Medical Decision Making Medical Decision Making: A/P: Asthma exacerbation, secondary to seasonal allergies -- Prednisone 60mg PO -- Motrin 600mg PO -- Duoneb 3ml INH x 3 130 --Patient having some wheezing, will order magnesium and fluids 500 --Patient is much improved, no longer wheezing --HR is 109, saturating 96% on RA at this time --Advised patient to followup as outpatient --Very well appearing upon discharge, speaking full sentences Scribe Attestation: Documented by Patricia Zimmerman acting as a scribe for Darryn Vallejo MD. Provider Scribe Attestation: All medical record entries made by the Scribe were at my direction and personally dictated by me. I have reviewed the chart and agree that the record accurately reflects my personal performance of the history, physical exam, medical decision making, and the department course for this patient. I have also personally directed, reviewed, and agree with the discharge instructions and disposition. Disposition - Clinical Impression Clinical Impression: Asthma - Patient ED Disposition Is Patient to be Admitted: No Counseled Patient/Family Regarding: Studies Performed, Diagnosis, Need For Followup - Disposition Referrals: Darnell Wylie [Outside] Disposition: Routine/Home Disposition Time: 05:00 Condition: IMPROVED Prescriptions: Albuterol HFA [Ventolin HFA 90 mcg/actuation (8 g)] 2 puff IH [id number] #1 puff Ketotifen Fumarate [Allergy Eye Drops] 10 ml OP BID #1 bottle Loratadine 10 mg PO DAILY #30 tablet Prednisone [Deltasone] 40 mg PO DAILY 3 Days #6 tablet Instructions: Asthma in Adults Forms: [facility] (N[place]ien) Print Language: GERMAN
[2018-09-03] MEDS ORDERED: Magnesium Sulfate 2 gm/50 ml 2 GM/50 ML BAG IVPB ONE (00:50)
[2018-09-03] MEDS ORDERED: Sodium Chloride 0.9% 1,000 ML IV STA (00:50)
[2018-09-03 00:51] VITALS: TEMP 98.9
[2018-09-03] MEDS ORDERED: Magnesium Sulfate 2 gm/50 ml 2 GM/50 ML BAG ONE (00:52)
[2018-09-03 05:57] VITALS: BP 115/54; PULSE 128; RESP 20; O2SAT 94
== END 2018-09-03 05:57 | disposition home or self-care (01) ==
LOC: H.ER 20:38
DX: J45.909 Unspecified asthma, uncomplicated (principal)
CPT/HCPCS: 96360; 96365; 99284; J7030